=== PATIENT | female | born 1930 | race Caucasian/White ===

== ENCOUNTER → 2016-09-13 | Outpatient (CLI) | payer MEDICARE, BC | END | disposition home or self-care (01) | LOC: YCHH 11:04 | PROVIDERS: ATTEND Family Medicine | DX: E55.9 Vitamin D deficiency, unspecified (principal); I50.9 Heart failure, unspecified; D51.9 Vitamin B12 deficiency anemia, unspecified; D64.9 Anemia, unspecified; E78.5 Hyperlipidemia, unspecified; M10.9 Gout, unspecified; E11.9 Type 2 diabetes mellitus without complications; E03.9 Hypothyroidism, unspecified ==

== ENCOUNTER → 2017-04-25 | Outpatient (CLI) | payer MEDICARE, BC | LOC: YCHH 10:37 | PROVIDERS: ATTEND Family Medicine | DX: M10.09 Idiopathic gout, multiple sites (principal); E03.9 Hypothyroidism, unspecified; D64.9 Anemia, unspecified; E78.5 Hyperlipidemia, unspecified; I50.9 Heart failure, unspecified; E16.2 Hypoglycemia, unspecified ==

== ENCOUNTER → 2017-06-11 | Outpatient (CLI) | payer MEDICARE, BC | LOC: YCHH 13:53 | PROVIDERS: ATTEND Family Medicine | DX: M17.0 Bilateral primary osteoarthritis of knee (principal); I50.9 Heart failure, unspecified; D51.9 Vitamin B12 deficiency anemia, unspecified; D64.9 Anemia, unspecified ==

== ENCOUNTER → 2017-09-05 | Outpatient (CLI) | payer MEDICARE, BC | LOC: YCHH 11:54 | PROVIDERS: ATTEND Family Medicine | DX: E03.9 Hypothyroidism, unspecified (principal); D51.9 Vitamin B12 deficiency anemia, unspecified ==

== ENCOUNTER → 2017-09-12 | Outpatient (CLI) | payer MEDICARE, BC | LOC: GMAL 16:37 | PROVIDERS: ATTEND Family Medicine | DX: R06.02 Shortness of breath (principal); I10 Essential (primary) hypertension ==

== ENCOUNTER → 2017-09-13 | Outpatient (CLI) | payer MEDICARE, BC | LOC: GMAL 13:10 | PROVIDERS: ATTEND Family Medicine | DX: N39.0 Urinary tract infection, site not specified (principal) ==

== ENCOUNTER → 2017-09-18 | Outpatient (CLI) | payer MEDICARE, BC ==
--- NOTE | 2017-09-18 16:48 | CT ---
EXAM DESCRIPTION: Abdomen/Pelvis w/o Contrast: Computed Tomography. CLINICAL HISTORY: ABD PAIN COMPARISON: CT abdomen and pelvis 10/24/2012. TECHNIQUE: Spiral-axial scans 5.0 mm intervals through the abdomen and pelvis with water soluble barium oral contrast; no IV contrast. Coronal and sagittal 2.0 mm reconstructions. Axial - 1.25 mm reconstructions.Total Exam DLP: 612.14 mGy-cm. This exam was performed according to our departmental CT dose-optimization program which includes automated exposure control, adjustment of the mA and/or kV according to patient size and/or use of iterative reconstruction technique; to reduce radiation dose to as low as reasonably achievable (ALARA). FINDINGS: Lung bases and pleura: Coronary artery calcifications and/or stents. Bilateral small pleural effusions. Atelectasis in the left lower lobe. Liver, stomach, spleen, and adrenal glands: Normal density and size of the solid organs. Stomach is unremarkable. Ascites surrounding the liver and spleen. Pancreas, Gallbladder, and Ducts: Surgical clips in the gallbladder fossa with minimal fluid. Increased density in the fat around the pancreas duodenum proximal jejunum and laney hepatis. Pancreas grossly normal. Common bile duct dilation most likely secondary to cholecystectomy. Kidneys and Ureters: Negative. Bilateral perirenal fatty stranding is symmetric. Mesentery: Diffuse density in the peritoneal cavity abdomen and pelvis. Ascites as previously described. Aorta: Moderate to severe atherosclerotic calcification throughout the entire length and significant calcification of the ostia of the major branch vessels. Calcification extending into the bilateral common iliac arteries. Small Bowel: Oral contrast mid jejunum to the distal ileum occasional small air-fluid levels. Terminal Ileum/Cecum: Normal caliber and containing oral contrast. Appendix not seen. Fluid in the bilateral paracolic gutters and fascial thickening. Colon: Gas and oral contrast ascending colon to the rectum. Mucosal thickening in the aguila of the distal sigmoid colon and rectum. Pelvic Organs: Minimal fatty stranding symmetrically in the pelvic cavity. Vaginal cuff unremarkable. Minimal bladder wall thickening but no radiodense stones. Spine and Bony Pelvis: Multiple levels of spondylosis with thoracolumbar dextroscoliosis and decreased bone density. Bilateral hip joint space narrowing and bilateral gas density in part of the SI joints. Abdominal Wall/Back Soft Tissues: Diffuse edema and density bilaterally. Large midline hernia superior and inferior to the umbilicus with multiple defects. The lowest defect measures approximately 1 cm transverse and craniocaudal (image [id number]). Slightly more superior at the level of the L5 vertebral body is a smaller defect, less than 1 cm transverse and craniocaudal. Increased density and gas noted in the adipose tissue anterior to this defect (image [id number]). More superiorly is a long defect in the craniocaudal axis measuring approximately 2 cm in maximum transverse with 3 cm (images 2: 34-37). The superior midline hernia is also a long defect in the craniocaudal axis, approximately 2 cm and approximately 2 cm in width with increased density anterior to the defect but no bowel (images 2: 25-28). The umbilicus is not well visualized. IMPRESSION: 1. Elongated midline ventral abdominal wall hernia with multiple defects as described involving tissue superior and inferior to the umbilicus which was not well seen. Edema and minimal air associated with these defects but no definite bowel extending to the hernia. The size of the hernia has progressed since the prior study. 2. Ascites involving all 4 quadrants of the abdomen particularly adjacent to the spleen and liver. This has progressed since the prior study. Bilateral pleural effusions. New since the prior study. 3. Evaluation of the pancreas duodenum laney hepatis and proximal jejunum and soft tissues is limited due to diffuse fatty stranding. Pancreas appears normal in size with no obvious defects. Also limited due to lack of IV contrast. 4. Thickening of the wall of the distal sigmoid colon and rectum which could indicate a nonspecific inflammatory process. Malignancy cannot be excluded. There is minimal distention of the sigmoid colon proximal to the level of inflammation. No small bowel obstruction. This inflammatory process involving a longer segment of the distal colon on the prior study. 5. Diffuse advanced atherosclerotic disease of the aorta and the ostia of the major branch vessels, extending into the bilateral common iliac arteries. Correlate with clinical findings. Also diffuse thoracolumbar spondylosis and scoliosis. This has progressed since the prior study. Electronically signed by: Toño Mclean MD 09/18/2017 4:46 PM CDT
== END ==
LOC: CT 10:00
PROVIDERS: ATTEND Family Medicine
DX: R10.9 Unspecified abdominal pain (principal); K43.9 Ventral hernia without obstruction or gangrene; R18.8 Other ascites

== ENCOUNTER → 2017-10-02 | Outpatient (CLI) | payer MEDICARE, BC | LOC: YCHH 14:07 | PROVIDERS: ATTEND Family Medicine | DX: I50.9 Heart failure, unspecified (principal); D51.8 Other vitamin B12 deficiency anemias; N39.0 Urinary tract infection, site not specified ==

== ENCOUNTER → 2017-10-24 | Outpatient (CLI) | payer MEDICARE, BC | LOC: YCHH 10:23 | PROVIDERS: ATTEND Family Medicine | DX: I50.9 Heart failure, unspecified (principal); I67.82 Cerebral ischemia; I10 Essential (primary) hypertension ==

== ENCOUNTER → 2017-10-31 | Outpatient (CLI) | payer MEDICARE, BC | LOC: YCHH 15:20 | PROVIDERS: ATTEND Family Medicine | DX: I50.9 Heart failure, unspecified (principal); D51.9 Vitamin B12 deficiency anemia, unspecified ==

== ENCOUNTER → 2017-11-20 | Outpatient (CLI) | payer MEDICARE, BC | LOC: YCHH 14:30 | PROVIDERS: ATTEND Family Medicine | DX: I50.9 Heart failure, unspecified (principal); I10 Essential (primary) hypertension; I48.91 Unspecified atrial fibrillation ==

== ENCOUNTER → 2017-11-28 | Outpatient (CLI) | payer BC, MEDICARE, OTHER | LOC: SOLHH 12:17 | PROVIDERS: ATTEND Family Medicine | DX: I50.9 Heart failure, unspecified (principal) ==